=== PATIENT | female | born 1970 | race Caucasian/White ===

== ENCOUNTER 2019-01-03 06:18 | Day surgery (SDC) | payer BC ==
[~2019-01-03] VITALS: Ht 157.5 cm; Wt 68.5 kg
[2019-01-03] MEDS ORDERED: CEFAZOLIN 1 GM IVPB PREMIX 50 ML IV ONE (07:00)
[2019-01-03] MEDS ORDERED: ONDANSETRON HCL 4 MG/2 ML VIAL IVP ONE (08:05)
[2019-01-03] MEDS ORDERED: fentaNYL CITRATE/PF 100 MCG/2 ML AMP IVP ONE (08:05)
[2019-01-03] MEDS ORDERED: LR 1,000 ML IV.SOLN IV ONE (08:05)
[2019-01-03] MEDS ORDERED: NS IRRIG SOLN 1000 ML IR ONE (08:05)
[2019-01-03] MEDS ORDERED: KETOROLAC TROMETHAMINE 30 MG VIAL IVP ONE (08:05)
[2019-01-03] MEDS ORDERED: MIDAZOLAM HCL 5 MG/5 ML VIAL IVP ONE (08:05)
[2019-01-03] MEDS ORDERED: SEVOFLURANE 15 MIN GAS INH ONE (08:05)
[2019-01-03] MEDS ORDERED: GLYCOPYRROLATE 0.2 MG/ML VIAL IJ ONE (08:05)
[2019-01-03] MEDS ORDERED: NEOSTIGMINE METHYLSULFATE 1 MG/ML, 10 ML VIAL IVP ONE (08:05)
[2019-01-03] MEDS ORDERED: LR 1,000 ML IV SCH (09:17)
[2019-01-03] MEDS ORDERED: MORPHINE 4 MG/ML INJ. SYRINGE IVP PRN ×3 (09:30)
[2019-01-03] MEDS ORDERED: METOCLOPRAMIDE HCL 10 MG/2 ML VIAL IVP SCH (09:30)
[2019-01-03] MEDS ORDERED: METOCLOPRAMIDE HCL 10 MG/2 ML VIAL ONE (09:35)
[2019-01-03 10:05] VITALS: BP_SYST 130
[2019-01-03] MEDS ORDERED: METOCLOPRAMIDE HCL 10 MG/2 ML VIAL IVP PRN (10:28)
== END 2019-01-03 11:55 | disposition home or self-care (01) ==
LOC: SMU 06:18 → SDS 06:18
PROVIDERS: ATTEND Obstetrics & Gynecology
DX: N93.8 Other specified abnormal uterine and vaginal bleeding (principal); I10 Essential (primary) hypertension; G43.909 Migraine, unspecified, not intractable, without status migrainosus; I49.9 Cardiac arrhythmia, unspecified; D64.9 Anemia, unspecified; Z79.899 Other long term (current) drug therapy; Z98.890 Other specified postprocedural states; Z98.51 Tubal ligation status
CPT/HCPCS: 58563; 88305; 93005; J0690; J1885; J2250; J2405; J2710; J2765; J3010; J3490; J7120